=== PATIENT | female | born 1955 | race Caucasian/White ===

== ENCOUNTER 2021-01-20 10:34 | Inpatient (IN) | payer OTHER ==
[~2021-01-20] VITALS: Ht 157.5 cm; Wt 52.5 kg
[2021-01-20] MEDS ORDERED: SODIUM CHLORIDE 0.9% 500 ML IVB ONE (10:45)
[2021-01-20 11:18] LABS: Basophils # (auto) 0.1 10 ^3/uL (0-0.2); Eosinophils # (auto) 0.1 10 ^3/uL (0-0.8); Eosinophils % (auto) 0.9 % (0.0-7.0); Hematocrit 31.6 % (36.0-46.0); Hemoglobin 10.3 g/dL (12.2-16.2); Lymphocytes # (auto) 1.8 10 ^3/uL (0.4-5.4); Mean Corpuscular Hemoglobin 27.4 pg (28.0-32.0); Mean Corpuscular Hgb Conc. 32.5 g/dL (32.0-36.0); Mean Corpuscular Volume 84.4 fL (80.0-100.0); Monocytes # (auto) 0.7 10 ^3/uL (0-1.3); Monocytes % (auto) 8.4 % (0.0-12.0); Neutrophils # (auto) 6.1 10 ^3/uL (1.6-8.6); Neutrophils % (auto) 69.7 % (37.0-80.0); Nucleated Red Blood Cells % 0.1 %; Red Blood Cells 3.74 10^6/uL (4.0-5.20); Red Cell Distribution Width 16.2 % (11.8-14.3); White Blood Cell 8.8 10^3/uL (4.4-10.8)
[2021-01-20 11:42] LABS: Chloride 113 mmol/L (98-107); Sodium 141 mmol/L (136-145)
[2021-01-20 11:48] LABS: Alanine Aminotransferase 20 U/L (13-56); Albumin 3.6 g/dL (3.4-5.0); Alkaline Phosphatase 112 U/L (45-117); Anion Gap 2 (5-15); Aspartate Aminotransferase 18 U/L (15-37); BUN/Creatinine Ratio 17.6; Bilirubin, Total 0.3 mg/dL (0.2-1.0); Blood Alcohol < 3.0 mg/dL (0-5); Blood Urea Nitrogen 12 mg/dL (7-18); Calcium 9.6 mg/dL (8.5-10.1); Carbon Dioxide 26 mmol/L (21-32); GFR African American 112 mL/min; GFR Non-African American 93 mL/min; Glucose 97 mg/dL (74-106); Total Protein 8.1 g/dL (6.4-8.2)
[2021-01-20 14:12] LABS: Urine Amorphous Crystal MOD /hpf (None Seen); Urine Bacteria NONE SEEN /hpf (None Seen); Urine Blood Negative /uL (Negative); Urine Specific Gravity 1.014 (1.001-1.035); Urine WBC 9 /hpf (0 - 5)
[2021-01-20] MEDS ORDERED: MORPHINE SULF INJ 2 MG/ML SYRINGE 1ML IV PRN (14:15)
[2021-01-20] MEDS ORDERED: NITROGLYCERIN 0.4 MG SL TAB SL PRN (14:15)
[2021-01-20 14:30] LABS: Amphetamine Screen, Urine NEGATIVE (NEGATIVE); Barbiturate Scree,Urine NEGATIVE (NEGATIVE); Benzodiazephine Screen, Urine NEGATIVE (NEGATIVE); Cannabinoid Screen, Urine NEGATIVE (NEGATIVE); Cocaine Screen, Urine NEGATIVE (NEGATIVE); Opiate Scree,Urine NEGATIVE (NEGATIVE); Phencyclidine Screen, Urine NEGATIVE (NEGATIVE)
[2021-01-20] MEDS ORDERED: LORazepam 0.5 MG TAB PO PRN (14:30)
[2021-01-20] MEDS ORDERED: ONDANSETRON HCL 4 MG/2 ML VIAL IV PRN (14:30)
[2021-01-20] MEDS ORDERED: ASPirin 81 mg TAB PO ONE (14:30)
[2021-01-20] MEDS ORDERED: traMADol HCL 50 MG TAB PO PRN (14:30)
[2021-01-20] MEDS ORDERED: ACETAMINOPHEN 500 MG TAB PO PRN (14:30)
[2021-01-20] MEDS ORDERED: LACTULOSE 20Gm/30ML SOLN PO PRN (14:30)
[2021-01-20] MEDS ORDERED: LABETALOL HCL 5 MG/ML ML 20ML VIAL IV PRN (14:30)
[2021-01-20 15:06] LABS: Creatine Kinase IFCC 48 U/L (26-192)
[2021-01-20 15:16] LABS: Folate (Folic Acid) > 24.00 ng/mL (5.38-24)
[2021-01-20] MEDS: SODIUM CHLORIDE 0.9% 1,000 ML IV SCH (15:21)
[2021-01-20 22:00] VITALS: BP 140/81
[2021-01-20] MEDS: FAMOTIDINE 20 MG TAB PO SCH (22:44)
[2021-01-20] MEDS: METOPROLOL TARTRATE 25 MG TAB PO SCH (22:45)
[2021-01-20] MEDS: ATORVASTATIN 20 MG TAB PO SCH (22:45)
[2021-01-21] MEDS: SODIUM CHLORIDE 0.9% 1,000 ML IV SCH ×3 (03:00→21:25)
[2021-01-21 05:00] VITALS: BP 142/72
[2021-01-21 05:35] LABS: Basophils # (auto) 0.1 10 ^3/uL (0-0.2); Basophils % (auto) 1.3 % (0.0-2.0); Eosinophils # (auto) 0 10 ^3/uL (0-0.8); Hematocrit 31.6 % (36.0-46.0); Hemoglobin 10.6 g/dL (12.2-16.2); Lymphocytes # (auto) 1.6 10 ^3/uL (0.4-5.4); Lymphocytes % (auto) 18.3 % (10.0-50.0); Mean Corpuscular Hemoglobin 28.3 pg (28.0-32.0); Mean Corpuscular Hgb Conc. 33.5 g/dL (32.0-36.0); Mean Corpuscular Volume 84.5 fL (80.0-100.0); Monocytes # (auto) 0.6 10 ^3/uL (0-1.3); Monocytes % (auto) 6.6 % (0.0-12.0); Neutrophils # (auto) 6.4 10 ^3/uL (1.6-8.6); Neutrophils % (auto) 73.8 % (37.0-80.0); Red Blood Cells 3.74 10^6/uL (4.0-5.20); Red Cell Distribution Width 16.2 % (11.8-14.3); White Blood Cell 8.7 10^3/uL (4.4-10.8)
[2021-01-21 05:54] LABS: Albumin 3.4 g/dL (3.4-5.0); Calcium 9.4 mg/dL (8.5-10.1); Potassium 4.7 mmol/L (3.5-5.1)
[2021-01-21 05:58] LABS: Bilirubin, Total 0.3 mg/dL (0.2-1.0)
[2021-01-21 08:15] VITALS: BP 144/81
[2021-01-21 08:56] VITALS: BP 144/81
[2021-01-21] MEDS ORDERED: ASPirin 81 mg TAB PO SCH ×2 (10:00)
[2021-01-21] MEDS: METOPROLOL TARTRATE 25 MG TAB PO SCH ×2 (11:21→22:00)
[2021-01-21] MEDS: ASPirin 81 mg TAB PO SCH (11:21)
[2021-01-21] MEDS: FAMOTIDINE 20 MG TAB PO SCH (11:21)
[2021-01-21] MEDS: ENOXAPARIN SOD 40 MG/0.4 ML SYRINGE SC SCH (11:22)
[2021-01-21] MEDS: ENALAPRIL MALEATE 10 MG TAB PO SCH (11:22)
[2021-01-21 12:48] VITALS: BP 146/88
[2021-01-21] MEDS ORDERED: SODIUM CHLORIDE 0.9% 1,000 ML IV ONE (14:45)
[2021-01-21 16:47] VITALS: BP 149/93
[2021-01-21] MEDS ORDERED: LORazepam 2MG/ML-1ML VIAL IV PRN (17:45)
[2021-01-21] MEDS ORDERED: HALOPERIDOL LACTATE 5 MG/ML INJ VIAL IM PRN (17:45)
[2021-01-21] MEDS ORDERED: MAGIC MOUTHWASH 55 ML SUSP MT PRN (20:30)
[2021-01-21 22:00] VITALS: BP 131/75
[2021-01-21] MEDS: LITHIUM CARBONATE 300 MG TAB PO SCH (22:00)
[2021-01-21] MEDS: ATORVASTATIN 20 MG TAB PO SCH (22:58)
[2021-01-21] MEDS: QUEtiapine FUMARATE 25 MG TAB PO SCH (22:58)
[2021-01-22 05:25] VITALS: BP 124/73
[2021-01-22] MEDS: SODIUM CHLORIDE 0.9% 1,000 ML IV SCH ×3 (06:26→17:46)
[2021-01-22 08:15] VITALS: BP 145/80
[2021-01-22 09:00] VITALS: BP 145/80
[2021-01-22] MEDS: LITHIUM CARBONATE 300 MG TAB PO SCH ×2 (11:13→22:36)
[2021-01-22] MEDS: FAMOTIDINE 20 MG TAB PO SCH (11:13)
[2021-01-22] MEDS: ASPirin 81 mg TAB PO SCH (11:13)
[2021-01-22] MEDS: QUEtiapine FUMARATE 25 MG TAB PO SCH ×2 (11:13→22:37)
[2021-01-22] MEDS: ENOXAPARIN SOD 40 MG/0.4 ML SYRINGE SC SCH (11:14)
[2021-01-22] MEDS: ENALAPRIL MALEATE 10 MG TAB PO SCH (11:14)
[2021-01-22 13:00] VITALS: BP 138/72
[2021-01-22 16:45] VITALS: BP 139/72
[2021-01-22 22:00] VITALS: BP 145/75
[2021-01-22] MEDS: ATORVASTATIN 20 MG TAB PO SCH (22:37)
[2021-01-23] MEDS: SODIUM CHLORIDE 0.9% 1,000 ML IV SCH ×4 (00:20→23:00)
[2021-01-23 05:00] VITALS: BP 144/74
[2021-01-23 09:00] VITALS: BP 148/73
[2021-01-23] MEDS: ASPirin 81 mg TAB PO SCH (10:39)
[2021-01-23] MEDS: LITHIUM CARBONATE 300 MG TAB PO SCH ×2 (10:41→21:58)
[2021-01-23] MEDS: FAMOTIDINE 20 MG TAB PO SCH (10:42)
[2021-01-23] MEDS: ENALAPRIL MALEATE 10 MG TAB PO SCH (10:43)
[2021-01-23] MEDS: ENOXAPARIN SOD 40 MG/0.4 ML SYRINGE SC SCH (10:44)
[2021-01-23 13:00] VITALS: BP 140/70
[2021-01-23] MEDS ORDERED: LOPERAMIDE 1 mg/7.5ml ORAL soln GT PRN (16:30)
[2021-01-23] MEDS ORDERED: LOPERAMIDE 1 mg/7.5ml ORAL soln GT ONE (16:30)
[2021-01-23 17:00] VITALS: BP_SYST 133; BP_SYST 142; BP_DIAS 58; BP_DIAS 76
[2021-01-23] MEDS: QUEtiapine FUMARATE 100 MG TAB PO SCH (21:59)
[2021-01-23] MEDS: ATORVASTATIN 20 MG TAB PO SCH (21:59)
[2021-01-23 22:00] VITALS: BP 151/81
[2021-01-24] MEDS: SODIUM CHLORIDE 0.9% 1,000 ML IV SCH ×4 (02:45→22:45)
[2021-01-24 05:00] VITALS: BP 159/91
[2021-01-24 09:29] VITALS: BP 143/89
[2021-01-24] MEDS: FAMOTIDINE 20 MG TAB PO SCH (09:39)
[2021-01-24] MEDS: ASPirin 81 mg TAB PO SCH (09:39)
[2021-01-24] MEDS: LITHIUM CARBONATE 300 MG TAB PO SCH ×2 (09:39→21:57)
[2021-01-24] MEDS: ENALAPRIL MALEATE 10 MG TAB PO SCH (09:40)
[2021-01-24] MEDS: ENOXAPARIN SOD 40 MG/0.4 ML SYRINGE SC SCH (09:40)
[2021-01-24] MEDS ORDERED: levoFLOXacin 500 MG TAB PO ONE (10:45)
[2021-01-24 13:00] VITALS: BP 138/85
[2021-01-24 17:00] VITALS: BP 157/89
[2021-01-24] MEDS: ATORVASTATIN 20 MG TAB PO SCH (21:58)
[2021-01-24] MEDS: QUEtiapine FUMARATE 100 MG TAB PO SCH (21:58)
[2021-01-24 22:00] VITALS: BP 152/83
[2021-01-25 05:00] VITALS: BP 138/98
[2021-01-25] MEDS ORDERED: traZODone HCL 50 MG TAB PO PRN (06:00)
[2021-01-25] MEDS: SODIUM CHLORIDE 0.9% 1,000 ML IV SCH (07:15)
[2021-01-25] MEDS: ASPirin 81 mg TAB PO SCH (08:48)
[2021-01-25] MEDS: levoFLOXacin 500 MG TAB PO SCH (08:48)
[2021-01-25] MEDS: ENOXAPARIN SOD 40 MG/0.4 ML SYRINGE SC SCH (08:49)
[2021-01-25] MEDS: ENALAPRIL MALEATE 10 MG TAB PO SCH (08:49)
[2021-01-25] MEDS: FAMOTIDINE 20 MG TAB PO SCH (08:49)
[2021-01-25 09:00] VITALS: BP 148/93
[2021-01-25] MEDS: LITHIUM CARBONATE 300 MG TAB PO SCH ×2 (10:00→21:17)
[2021-01-25 13:00] VITALS: BP 144/84
[2021-01-25 17:00] VITALS: BP 138/105
[2021-01-25] MEDS: QUEtiapine FUMARATE 100 MG TAB PO SCH (21:18)
[2021-01-25] MEDS: ATORVASTATIN 20 MG TAB PO SCH (21:18)
[2021-01-25 22:00] VITALS: BP 149/96
[2021-01-26] MEDS: SODIUM CHLORIDE 0.9% 1,000 ML IV SCH ×2 (01:25→08:05)
[2021-01-26 05:00] VITALS: BP 134/87
[2021-01-26 08:15] VITALS: BP 127/91
[2021-01-26 09:00] VITALS: BP 142/92
[2021-01-26] MEDS: ASPirin 81 mg TAB PO SCH (10:40)
[2021-01-26] MEDS: LITHIUM CARBONATE 300 MG TAB PO SCH (10:42)
[2021-01-26] MEDS: levoFLOXacin 500 MG TAB PO SCH (10:43)
[2021-01-26] MEDS: ENALAPRIL MALEATE 10 MG TAB PO SCH (10:44)
[2021-01-26] MEDS: ENOXAPARIN SOD 40 MG/0.4 ML SYRINGE SC SCH (10:44)
[2021-01-26 11:52] VITALS: BP 142/92
[2021-01-26 13:00] VITALS: BP 127/91
== END 2021-01-26 13:00 | disposition home or self-care (01) | DRG 641 ==
LOC: EDBD 10:34 → ER 10:34 → TELE 14:01 → TELE-CENTR 21:34
PROVIDERS: ADMIT Internal Medicine; ATTEND Family Medicine
DX: E86.0 Dehydration (principal); D64.9 Anemia, unspecified; F31.9 Bipolar disorder, unspecified; I10 Essential (primary) hypertension; Z20.822 Contact with and (suspected) exposure to COVID-19; I16.0 Hypertensive urgency; E78.00 Pure hypercholesterolemia, unspecified; R00.1 Bradycardia, unspecified; Z88.0 Allergy status to penicillin; Z88.8 Allergy status to other drugs, medicaments and biological substances; Z79.899 Other long term (current) drug therapy
CPT/HCPCS: 36415; 70450; 70551; 71045; 80053; 80061; 80178; 80307; 80320; 81001; 82550; 82607; 82746; 82962; 84443; 84484; 85025; 85652; 87426; 93005; 93306; 93886; 95819; 96361; 96374; 97163; G0378; J2405